=== PATIENT | female | born 1950 | race Caucasian/White ===

== ENCOUNTER 2023-11-11 23:50 | Inpatient (IN) | payer MEDICARE, BC, SELFPAY ==
[2023-11-11 21:10] VITALS: BP 167/80; BMI 28.1
[2023-11-11 21:18] VITALS: BP 167/80
[2023-11-11 21:41] VITALS: BP 141/84
[2023-11-11 21:42] LABS: % Basophils 0.6 % (0-2); % Eosinophils 1.2 % (0-6); % Immature Granulocytes 0.2 % (0-0.5); % Lymphocytes 29.8 % (20.5-51.1); % Monocytes 8.6 % (1.7-9.3); % Neutrophils 59.6 % (42.2-75.2); Absolute Basophils 0.1 10^3/uL (0-0.2); Absolute Eosinophils 0.1 10^3/uL (0-0.7); Absolute Lymphocytes 2.8 10^3/uL (1.2-3.4); Absolute Monocytes 0.8 10^3/uL (0.1-0.6); Absolute Neutrophils 5.6 10^3/uL (1.4-6.5); Hematocrit 42.4 % (37.0-47.0); Hemoglobin 14.7 g/dL (12.0-16.0); Mean Corp Hgb Conc. 34.7 g/dL (33.0-37.0); Mean Corpuscular Hgb 29.4 pg (27.0-31.0); Mean Corpuscular Volume 84.8 fL (81.0-99.0); Mean Platelet Volume 11.6 fL (7.4-10.4); Nucleated Red Blood Cells % 0 %; Platelet Count 218 10^3/uL (130-400); Red Cell Dist. Width 13.1 % (11.5-14.5); White Blood Cell Count 9.3 10^3/uL (4.8-10.8)
[2023-11-11 21:55] LABS: ALT (SGPT) 13 U/L (0-35); AST (SGOT) 33 U/L (14-36); Albumin 4.5 g/dl (3.5-5.0); Alkaline Phosphatase 128 U/L (38-126); Blood Urea Nitrogen 26 mg/dl (7-17); Calcium 9.1 mg/dl (8.4-10.2); Carbon Dioxide 24 mmol/L (22-30); Chloride 105 mmol/L (98-107); Estimated Creatinine Clearance 61 ml/min; Glucose 106 mg/dl (70-99); Sodium 135 mmol/L (135-145); Total Bilirubin 1.9 mg/dl (0.2-1.3); Total Protein 7.4 g/dl (6.3-8.2); eGFR > 60.00
[2023-11-11 22:00] VITALS: BP 142/86
--- NOTE | 2023-11-11 22:06 | ED.GENMED ---
History of Present Illness
General
Chief Complaint: Chest Pain
Source: patient and ambulance crew
Exam Limitations: none
Time Seen by Provider: 11/11/23 21:21
Nursing documentation reviewed up to this point in time: agreed with
Travel History
Have you had any contact with someone who has COVID-19?: No
Do you have any symptoms of coronavirus? Fever > 100 degrees, chills, cough, shortness of breath, sore throat, loss of taste or smell, muscle aches, or headache?: No
History of Present Illness
History of Present Illness:
Late entry seen immediately upon presentation 73-year-old female presents with chest jaw shoulder pain occurred after lifting some weights this evening, no prior episodes she has a history of hypertension, parathyroidism, eye surgeries
Patient tells me the pain improved after given aspirin by EMS,
My evaluation I reviewed patient's history EKG here EKG by EMS concern for ST segment elevation, immediately reviewed with cardiology, STEMI alert called
Review of Systems
Review of Systems
All Other Systems: Not applicable
EENT: Reports no symptoms
Respiratory: Reports trouble breathing
Cardiac: Reports chest pain; Denies diaphoresis or palpitations
ABD/GI: Reports no symptoms
Musculoskeletal: Reports muscle stiffness and neck pain
Phy Exam
Physical Exam
Physical Exam:
Physical Exam
General: no apparent distress, not acutely ill
Neck: No jaundice
Heart: s1/s2 regular rate and rhythm, no murmur. equal radial pulses.
Lungs: no acute respiratory distress. clear bilaterally
Abdomen: Not
Neuro: alert and oriented. no focal neurological deficits
Skin: no rash
Psychiatric: well kept. interactive and cooperative
Extremities: no edema.
Scores
Heart Score for Chest Pain Patients
STEMI patient?: Yes
Course
Orders/Labs/Results
Orders:
Orders
11/11/23 21:09
Electrocardiogram (*1) Urgent
Reason for Study: Chest Pain
EKG- Treatment ONCE
11/11/23 21:36
Complete Blood Count/With Diff Urgent
Comprehensive Metabolic Panel Urgent
Troponin I Urgent
Abnormal Lab Results
11/11/23
21:36
MPV 11.6 H fL
(7.4-10.4)
Absolute Monos (auto) 0.8 H 10^3/uL
(0.1-0.6)
BUN 26 H mg/dl
(7-17)
Glucose 106 H mg/dl
(70-99)
Total Bilirubin 1.9 H mg/dl
(0.2-1.3)
Alkaline Phosphatase 128 H U/L
(38-126)
Troponin I 0.343 H* ng/ml
11/11/23 21:36
11/11/23 21:36
Vital Signs
Initial and Last Documented VS:
Initial Vital Signs
Temp Pulse Resp BP Pulse Ox
97.7 F 85 18 167/80 99
11/11/23 21:10 11/11/23 21:10 11/11/23 21:10 11/11/23 21:10 11/11/23 21:10
Last Documented Vital Signs
Temp Pulse Resp BP Pulse Ox
97.7 F 78 18 141/84 97
11/11/23 21:10 11/11/23 22:00 11/11/23 22:00 11/11/23 21:41 11/11/23 22:00
MDM/Problems Addressed
Differential Diagnosis Includes:
STEMI late presentation [place] LV aneurysm pericarditis doubt PE
MDM/Problems Addressed:
Chest pain ST segment elevation
Chronic conditions affecting care: HTN
Acute Exacerbation and/or Progression of Chronic Illness: HTN
*Pulse Oximetry
Patient hypoxic: no
*EKG
Interpreted by ED Provider?: Yes
Interpretation: abnormal
Comparison EKG: no comparison EKG present
Heart Rate: 78
Rate: normal
Rhythm: sinus
Ischemia: ST elevation
*Coconut Jelly Roller Interpretation
Rate: normal
Interpretation: normal
Heart Rate: 78
Rhythm: sinus
*Critical Care Note
Total Time (30-74mins, 75-104mins- exclusive of procedures): 35
Update Note
Update Note:
Stationary is concerning for coronary syndrome prehospital EKG and EKG here concerning for ST segment elevation reviewed with cardiology STEMI alert called given usual meds sent to Control Room Technician multiple questions answered from patient
ED Attending Note
-
Portions of this chart may have been created with voice recognition software.� Occasional wrong word or��sound alike� substitutions may have occurred due to the inherent limitations of voice recognition software.
Discharge Plan
Departure
Patient Disposition: Admit
Date of Disposition: 11/11/23
Time of Disposition: 22:17
Admit to: laboratory apparatus glass grinder
Presentation/result/management discussed w/ accepting MD/DO: Lorie
Patient with high blood pressure during this ER visit?: Yes
Condition: Serious
Covid-19: Not Applicable
Discharge Problem:
ST elevation (STEMI) myocardial infarction
Interventions
Interventions:
*Risk Screen - Suicide Last Done: 11/11/23 21:10
*General Assessment Last Done: 11/11/23 21:10
*Neglect/Abuse Screening Last Done: 11/11/23 21:10
*ED COVID-19 Vaccine History Last Done: 11/11/23 21:43
[2023-11-11 22:07] LABS: Troponin I 0.343 ng/ml
[2023-11-11 22:20] LABS: ACT-LR - POC 218 Seconds (116-155)
[2023-11-11 22:34] LABS: ACT-LR - POC 282 Seconds (116-155)
[2023-11-11 22:45] LABS: ACT-LR - POC 329 Seconds (116-155)
[2023-11-11 23:03] LABS: ACT-LR - POC 306 Seconds (116-155)
[2023-11-11 23:36] LABS: ACT-LR - POC 326 Seconds (116-155)
[2023-11-12] VITALS (15 sets, daily range): BP systolic 114–160; BP diastolic 67–97; BMI 26.1
--- NOTE | 2023-11-12 00:04 | ITS.CL.CATH ---
Back Tender - Catheterization
Cardiac Catheterization
Procedure Report:
LEFT HEART CATH AND CORONARY INTERVENTION
Date of Procedure: November 11, 2023
Referring: [facility] Emergency Department
PROCEDURES:
1. Left heart catheterization with coronary and single-plane left ventriculography
2. Successful stenting of the proximal to mid LAD with a 3.5 x 38 mm Xience stent that was implanted at nominal pressures then postdilated to high pressures between 16 and 18 carisa with a 3.5 mm noncompliant balloon
INDICATION: This is a 73-year-old female with a past medical history notable for hypertension and partial parathyroidectomy. She presented to [facility] with complaints of chest and jaw discomfort. She states that she worked out at the
[facility] earlier today and noticed substernal chest tightness and jaw discomfort after returning home between 530 and 6:30 PM. The symptoms persisted and 911 was called. Her prehospital electrocardiogram was concerning for ST segment elevation in the
anteroseptal leads V1 and V2. Upon arrival to [facility] the patient was very reluctant to report chest discomfort or jaw discomfort which led to her admission. A repeat electrocardiogram continued to demonstrate ST elevation in lead V1
and V2 as well as possibly in lead V4 and the decision was made to refer the patient for coronary angiography. Note: patient was very conversant in the ED and was difficult to get her to stay on topic of her chest pain. We also reviewed the
procedure and details of the consent with the patients son, Brian, who lives in [place]. She was chest pain free and moved slowly toward consenting for procedure delaying ED time by 5-10 minutes.
ACCESS: Right radial artery, 6 Ghanaian sheath
HEMODYNAMICS (mmHg):
AO (s/d, m) : 148/81
LV (s/d) : 148/14
LVEDP : 27
CORONARY FINDINGS: Moderate left coronary system calcification
Dominance: Right
LEFT MAIN: Normal
LEFT ANTERIOR DESCENDING: The LAD was moderately calcified in its proximal and mid section. There is a 95% stenosis in the proximal LAD involving the origin of a small first diagonal branch. The mid to distal LAD becomes a large-caliber vessel and
the apical LAD has a 65% stenosis but completely wraps around the apex supplying a portion of the inferior wall. There is a small caliber first diagonal branch that arises just beyond the high-grade stenosis in the LAD. The diagonal branch has a
95% proximal stenosis and supplies a small to medium territory.
CIRCUMFLEX: The circumflex gives rise to a large trifurcating obtuse marginal branch. The AV continuation of the circumflex supplies 2 small posterolateral branches.
RIGHT CORONARY: The right coronary artery is a dominant vessel with a 20% stenosis in its midportion near the origin of an RV marginal branch. There are parallel PDAs and a very small posterolateral system
VENTRICULOGRAPHY: Left ventriculography was performed in an RECINOS projection. The digital single-plane left ventricular ejection fraction was estimated at 50% with mild anterolateral hypokinesis and focal apical hypokinesis
ANGIOPLASTY PROCEDURE DETAIL: Upon review of the diagnostic catheterization films the decision was made to proceed with percutaneous revascularization of the high-grade proximal LAD stenosis. Cannulation of the left main was not difficult, however,
I could not get a guidewire to pass to the LAD. The left main was initially cannulated with a 6 Ghanaian XB 3.5 guide catheter at 10:23 p.m. I could not get a BMW guidewire to cross to the ostium of the LAD without prolapsing into the circumflex. I
tried the BMW guidewire with multiple different bends at the tip of the wire, however, the wire was favorably directed to the circumflex. The XB 3.5 guide catheter was removed and exchanged for an XB 3.0 guide catheter, a JL 4 guide catheter, and a
JL 3.5 guide catheter. Each catheter could cannulate the left main, however, the wires were directed towards the circumflex and could not engage the LAD ostium. Fortunately, a 6 Ghanaian AL 0.75 guiding catheter favorably directed the guidewire and
the LAD stenosis was crossed with a Powerturn Flex wire which was advanced to the apical LAD. I had initially planned on ballooning and/or stenting the origin of the diagonal branch, however, the acute angle from the proximal LAD prevented
cannulation of the diagonal branch with several guidewire attempts. At this time the decision was made to proceed with balloon angioplasty and stenting of the LAD. The first balloon dilation was performed at 11: 18 p.m. representing approximate 50
minute delay in door to balloon time. Fortunately, the LAD had ZANE 3 flow throughout the procedure and clinically she was experiencing no chest discomfort.
The Powerturn Flex was advanced to the apical LAD and the proximal LAD was predilated using a 2.0 mm balloon. High pressures were required to achieve full balloon expansion. A 3.5 x 38 mm Xience stent was advanced over the guide wire and implanted
from the ostium of the LAD to the mid LAD beyond the diagonal branch. The stent was implanted at nominal pressures then post dilated with a 3.5 mm NC balloon between 16 and 18 atmospheres. I did attempt to rewire the diagonal branch unsuccessful.
Fortunately, the flow into the diagonal branch remained stable post stent deployment and post dilation
RADIATION SUMMARY: Fluoro Time (min): 32, Dose (mGy): 737, DAP (Gy.cm2) : 32.4
CONCLUSIONS
1. Complex but ultimately successful stenting of the proximal to mid LAD with a 3.5 x 38 mm Xience stent that was implanted at nominal pressures and postdilated with a 3.5 mm noncompliant balloon to high pressures.
2. Preserved left ventricular systolic function with an estimated ejection fraction of 50-55% mild anterolateral hypokinesis
RECOMMENDATIONS
1. Uninterrupted dual antiplatelet therapy for 1 year
2. High intensity statin therapy
3. Trend serial troponin levels and will check fasting lipids and hemoglobin A1c
4. Will need to work on better blood pressure control
Copy To: Dr. Chase Melo
[2023-11-12 03:30] LABS: % Basophils 0.4 % (0-2); % Eosinophils 1.3 % (0-6); % Immature Granulocytes 0.2 % (0-0.5); % Lymphocytes 27.7 % (20.5-51.1); % Monocytes 9.2 % (1.7-9.3); % Neutrophils 61.2 % (42.2-75.2); Absolute Eosinophils 0.1 10^3/uL (0-0.7); Absolute Lymphocytes 2.3 10^3/uL (1.2-3.4); Absolute Monocytes 0.8 10^3/uL (0.1-0.6); Absolute Neutrophils 5.2 10^3/uL (1.4-6.5); Hematocrit 38.4 % (37.0-47.0); Hemoglobin 13.4 g/dL (12.0-16.0); Mean Corp Hgb Conc. 34.9 g/dL (33.0-37.0); Mean Corpuscular Hgb 29.2 pg (27.0-31.0); Mean Corpuscular Volume 83.7 fL (81.0-99.0); Mean Platelet Volume 11.7 fL (7.4-10.4); Nucleated Red Blood Cells % 0 %; Platelet Count 195 10^3/uL (130-400); Red Blood Cell Count 4.59 10^6/uL (4.20-5.40); White Blood Cell Count 8.4 10^3/uL (4.8-10.8)
[2023-11-12 03:58] LABS: Blood Urea Nitrogen 25 mg/dl (7-17); Calcium 8.8 mg/dl (8.4-10.2); Carbon Dioxide 21 mmol/L (22-30); Chloride 110 mmol/L (98-107); Estimated Creatinine Clearance 78 ml/min; Glucose 97 mg/dl (70-99); HDL Cholesterol 76 mg/dl; LDL Cholesterol, Calculated 105 mg/dl; Potassium 3.7 mmol/L (3.5-5.1); Sodium 137 mmol/L (135-145); Total Cholesterol 192 mg/dl (50-199); Triglyceride 56 mg/dl (10-149); Very Low Density Lipoprotein 11 mg/dl (0-30); eGFR > 60.00
[2023-11-12 04:08] LABS: Troponin I 0.871 ng/ml
--- NOTE | 2023-11-12 05:16 | PTCARENOTE ---
pt received from veterinary laboratory technician approximately 2350. R radial band in place. R radial pulse palpable. B/l pedal pulses palpable. Pt extremely conversive. Pt oriented to IVU and [facility]. Pt belongings with pt. Pt educated on what is a STEMI,
what counts as a heart attack, CAD, and diet choices. Pt updated son on phone on condition. Pt denies any CP, lightheadedness/dizziness, or SOB at this time. Informed to notify RN if any changes, call barros within reach.
--- NOTE | 2023-11-12 08:35 | PTCARENOTE ---
Rec'd pt AAOx3, w/no c/o CP or SOB. Pt mildly anxious & very talkative this am. Pt's R radial band removed by this RN & sterile dressing placed. Site is ecchymotic w/dressing C/D/I, no signs or symptoms of bleeding or hematoma. Pt's VS stable w/HR
80's, BP slightly elevated at 151/97. Plan of care discussed w/pt & pt verbalizes understanding. Plan of care ongoing.
[2023-11-12 09:27] LABS: Glycohemoglobin (HgbA1c) 5.8 % (4.0-5.6)
[2023-11-12] MEDS: BRILINTA 90 MG PO (10:07)
[2023-11-12] MEDS: COZAAR 100 MG PO (10:07)
[2023-11-12] MEDS: LOW STRENGTH ASPIRIN 81 MG PO (10:07)
--- NOTE | 2023-11-12 11:01 | PTCARENOTE ---
Pt questioning her new medications and would like to speak w/the MD re: the metoprolol XL and Brilinta. Pt willing to take Brilinta at this time, but needs to speak w/CM re: pricing for the med. Pt unwilling to take metoprolol XL until she sees
physician. Also pt stated she takes her Norvasc in the evening. Advised pt this RN would speak w/ re: changing the time for the Norvasc and them coming to speak w/her about the other new meds. Pt agreeable to plan of care.
--- NOTE | 2023-11-12 13:17 | CM ---
Reviewed chart . Met with Miss Tavarez to review discharge plans. She states prior to admission she resides alone in an apartment with twelve steps to enter. She states prior to admission she was independent with ambulation and adls. She states
she does not have any DME in the home. She does have a blood pressure cuff. She states she has a prescription plan with [facility]. Telephone call to Amy, ([phone]) to check on co-pay. Her first script would be $ 361.19 for a month
supply. 90 day supply first script would be $805.96. After she meets her deductible she would pay $50% of the cost of the medication. So it would be $221.98 a month or $665.96 for a 90 day supply. She would like to have paper scripts so she can
shop around for the best olivares for her medications. She states they doctor is planning on switching her to Plavix in A.M. She has numerous questions regarding new medications and cardiac rehab. Medical work-up in progress. The discharge plan is
to return home when medically stable.
--- NOTE | 2023-11-12 13:56 | W.PN.CARDCBS ---
Addendum entered and electronically signed by Mil Moran MD 11/12/23 15:38:
I saw and examined the patient.
The SHAREPOINT ARCHITECT or PA's note was reviewed and I agree with the note.
Comment: General: Well developed, well nourished in NAD.
Neck: Supple, no JVD, HJR, carotids +2 B/L, no bruits bilaterally.
Heart: Non displaced PMI, RRR, no murmurs, No S3, S4, no rubs.
Lungs: Clear to auscultation bilaterally, no wheeze, rhonchi, rubs bilaterally,
normal expiratory phase.
Extremities: No clubbing, cyanosis or edema bilaterally.
Neuro: Grossly nonfocal, awake, alert and oriented x3.
Stable cardiology status. Ejection fraction normal on echo. Will stop Brilinta and start Plavix given Brilinta is too costly. She agrees to low-dose Toprol. All medications and questions have been answered in detail by physician and PA. Total
time was 60 minutes.
Original Note:
Today's Communication / Plan
-
Stop Brilinta now and then start Plavix 600 mg in AM then 75 mg daily thereafter
Patient willing to try low dose Toprol XL in AM
All meds reviewed with patient and approved
Impression / Plan
-
PCP: in [place]
Cardiology: None prior to admission
Impression:
STEMI, Troponin 1.73 and trending
CAD s/p 3.5 mm Xience to prox to mid LAD 11/11/23
HTN with labile HTN
Prediabetes, HgbA1c 5.8%
Hyperlipidemia
Echo 11/12/23: EF 50-55%, mild septal hypertrophy, mid anteroseptal and distal septal hypokinesis, aortic sclerosis without stenosis
Plan:
-Tolerating aspirin and Brilinta, but Brilinta is cost prohibitive. Will stop Brilinta now and then start Plavix with a loading dose of 600 mg on 11/13/23 AM followed by 75 mg daily thereafter.
-Troponin was 0.3 initially and up to 1.73 at 1030 on 11/12/23. Next Troponin pending for 1500. No chest pain. ECG reviewed by me with improved ST changes.
-ECGs, labs and cath report shared with patient and she appreciated it.
-LDL 105. Patient was not taking a statin prior to admission. Patient is agreeable to trying Crestor 20 mg HS.
-Patient with a h/o HTN. Her PCP is a former knifer up and he has done an excellent job configuring her meds given her h/o labile BPs as well. Will continue outpatient regimen of losartan 100 mg AM and amlodipine 2.5 mg PM. Patient is willing to
try Toprol XL 12.5 mg starting 11/13/23 AM. Patient reports syncope with bradycardia (HR 50s) on atenolol 6-8 years ago while still living in [place].
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
-Tele reviewed by me shows SR, no ventricular ectopy or arrhythmia
-Reviewed hospital course thus far and meds with patient. On 11/12/23 entered room at 1427 and exited room at 1456. Additional time spent talking with patient's nurse, cardiac rehab and case resolution specialist for a total of 53 minutes in care on 11/12/23.
HPI: This is a 73-year-old female with a past medical history notable for hypertension and partial parathyroidectomy.� She presented to [facility] with complaints of chest and jaw discomfort.� She states that she worked out at the [facility]
earlier today and noticed substernal chest tightness and jaw discomfort after returning home between 530 and 6:30 PM.� The symptoms persisted and 911 was called.� Her prehospital electrocardiogram was concerning for ST segment elevation in the
anteroseptal leads V1 and V2.� Upon arrival to [facility] the patient was very reluctant to report chest discomfort or jaw discomfort which led to her admission.� A repeat electrocardiogram continued to demonstrate ST elevation in lead V1
and V2 as well as possibly in lead V4 and the decision was made to refer the patient for coronary angiography.� Note: patient was very conversant in the ED and was difficult to get her to stay on topic of her chest pain.� We also reviewed the
procedure and details of the consent with the patients son, Brian, who lives in [place].� She was chest pain free and moved slowly toward consenting for procedure delaying ED time by 5-10 minutes.
Progress Note - Exhibition Specialist
Subjective
Date of Service: November 12, 2023
No chest pain
Objective
Labs:
11/12/23 02:42
11/12/23 02:42
Labs
Hgb 13.4 g/dL (12.0-16.0) 11/12/23 02:42
Hct 38.4 % (37.0-47.0) 11/12/23 02:42
Plt Count 195 10^3/uL (130-400) 11/12/23 02:42
Sodium 137 mmol/L (135-145) 11/12/23 02:42
Potassium 3.7 mmol/L (3.5-5.1) 11/12/23 02:42
BUN 25 mg/dl (7-17) H 11/12/23 02:42
Creatinine 0.7 mg/dL (0.6-1.0) 11/12/23 02:42
Glucose 97 mg/dl (70-99) 11/12/23 02:42
Troponins
11/11/23 11/11/23 11/12/23
21:36 21:39 02:42
Troponin I 0.343 H* Cancelled 0.871 H* D
11/12/23
10:30
Troponin I 1.730 H* D
Vital Signs and I&O:
Vital Signs
Temp Pulse Resp BP Pulse Ox
97.7 F 74 20 131/69 97
11/12/23 11:34 11/12/23 12:45 11/12/23 11:34 11/12/23 11:37 11/12/23 11:34
Vital Signs
Temp Pulse Resp BP Pulse Ox
97.7 F 74 20 131/69 97
11/12/23 11:34 11/12/23 12:45 11/12/23 11:34 11/12/23 11:37 11/12/23 11:34
Intake & Output
11/10/23 11/11/23 11/12/23 11/13/23
05:59 06:59 06:59 06:59
Intake Total 120 / 120
Balance 120 / 120
Physical Exam
Physical Exam
GEN: NAD, AAOx3
HEENT: EOMI, MMM
LUNGS: No audible wheeze
CV: Reg
ABD: ND
EXT: No edema
NEURO: Gross non-focal
SKIN: No rash
--- NOTE | 2023-11-12 17:16 | W.PN.UPDATE ---
Update Note
Progress Note Update
Back in to talk to patient and let her known that Brilinta will transition to Plavix with a 600 mg loading dose in the AM. Meds for tonight include Crestor and amlodipine. Meds for tomorrow morning include Toprol XL (for the first time), Plavix,
aspirin and her usual dose of losartan.
[2023-11-12] MEDS: CRESTOR 20 MG PO (17:49)
[2023-11-12] MEDS: NORVASC 2.5 MG PO (20:21)
--- NOTE | 2023-11-12 23:26 | PTCARENOTE ---
Pt requested a list of her current medication orders- screenshots provided of the MAR for meds and dosage. Trops still trending up. SR in the 70s on the monitor.
[2023-11-13 04:55] VITALS: BP 129/71
[2023-11-13 07:35] VITALS: BP 137/90
[2023-11-13] MEDS: COZAAR 100 MG PO (09:13)
[2023-11-13] MEDS: LOW STRENGTH ASPIRIN 81 MG PO (09:13)
[2023-11-13] MEDS: PLAVIX 600 MG PO (09:13)
[2023-11-13] MEDS: TOPROL XL 12.5 MG PO (09:13)
--- NOTE | 2023-11-13 10:56 | PTCARENOTE ---
Pt AAOx3 w/no c/o CP or SOB. Pt w/R radial dressing C/D/I-dressing removed & site is intact & JACQUE. Pt's VS stable w/HR in the 60's & BP 137/90, which pt states 'is her norm'. Pt anticipating D/C today. Plan of care ongoing.
--- NOTE | 2023-11-13 11:59 | W.PN.CARDCBS ---
Addendum entered and electronically signed by Mil Moran MD 11/13/23 14:42:
I saw and examined the patient.
The ANDROID SOFTWARE ENGINEER or PA's note was reviewed and I agree with the note.
Comment: General: Well developed, well nourished in NAD.
Stable cardiology status for discharge to home
Troponin decreased
Follow-up has been arranged
All questions answered
Discharge time greater than 30-minutes
Original Note:
Today's Communication / Plan
-
Troponin pending
Possible d/c
Impression / Plan
-
PCP: in [place]
Cardiology: None prior to admission
Impression:
STEMI, Troponin 1.73 and trending
CAD s/p 3.5 mm Xience to prox to mid LAD 11/11/23
HTN with labile HTN
Prediabetes, HgbA1c 5.8%
Hyperlipidemia
Echo 11/12/23: EF 50-55%, mild septal hypertrophy, mid anteroseptal and distal septal hypokinesis, aortic sclerosis without stenosis
Plan:
-Brilinta was cost prohibitive so patient transitioned to Plavix with a loading dose of 600 mg x1 on 11/13/23 AM. Then start Plavix 75 mg daily thereafter.
-Troponin up to 2.96 on 11/13/23 AM and next Troponin pending. If trending down then patient can be discharged to home.
-ECG reviewed by me with improved ST changes.
-ECGs, labs and cath report shared with patient and she appreciated it.
-LDL 105. Patient was not taking a statin prior to admission. Patient agreeable to trying Crestor 20 mg HS.
-Patient with a h/o HTN. 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
-Continue outpatient regimen of losartan 100 mg AM and amlodipine 2.5 mg PM.
-Patient is willing to try Toprol XL 12.5 mg starting 11/13/23 AM. 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
-Tele reviewed by me shows SR, no ventricular ectopy or arrhythmia
-Cardiology follow up arranged
HPI: This is a 73-year-old female with a past medical history notable for hypertension and partial parathyroidectomy.� She presented to [facility] with complaints of chest and jaw discomfort.� She states that she worked out at the [facility]
earlier today and noticed substernal chest tightness and jaw discomfort after returning home between 530 and 6:30 PM.� The symptoms persisted and 911 was called.� Her prehospital electrocardiogram was concerning for ST segment elevation in the
anteroseptal leads V1 and V2.� Upon arrival to [facility] the patient was very reluctant to report chest discomfort or jaw discomfort which led to her admission.� A repeat electrocardiogram continued to demonstrate ST elevation in lead V1
and V2 as well as possibly in lead V4 and the decision was made to refer the patient for coronary angiography.� Note: patient was very conversant in the ED and was difficult to get her to stay on topic of her chest pain.� We also reviewed the
procedure and details of the consent with the patients son, Brian, who lives in [place].� She was chest pain free and moved slowly toward consenting for procedure delaying ED time by 5-10 minutes.
Progress Note - Superintendent Operating
Subjective
Date of Service: November 13, 2023
No chest pain
Objective
Labs:
11/12/23 02:42
11/12/23 02:42
Labs
Hgb 13.4 g/dL (12.0-16.0) 11/12/23 02:42
Hct 38.4 % (37.0-47.0) 11/12/23 02:42
Plt Count 195 10^3/uL (130-400) 11/12/23 02:42
Sodium 137 mmol/L (135-145) 11/12/23 02:42
Potassium 3.7 mmol/L (3.5-5.1) 11/12/23 02:42
BUN 25 mg/dl (7-17) H 11/12/23 02:42
Creatinine 0.7 mg/dL (0.6-1.0) 11/12/23 02:42
Glucose 97 mg/dl (70-99) 11/12/23 02:42
Troponins
11/11/23 11/11/23 11/12/23
21:36 21:39 02:42
Troponin I 0.343 H* Cancelled 0.871 H* D
11/12/23 11/12/23 11/12/23
10:30 16:15 21:53
Troponin I 1.730 H* D 2.210 H* D 2.660 H*
11/13/23
05:02
Troponin I 2.960 H*
Vital Signs and I&O:
Vital Signs
Temp Pulse Resp BP Pulse Ox
98.1 F 71 16 137/90 95
11/13/23 07:33 11/13/23 08:00 11/13/23 07:33 11/13/23 07:35 11/13/23 07:33
Vital Signs
Temp Pulse Resp BP Pulse Ox
98.1 F 71 16 137/90 95
11/13/23 07:33 11/13/23 08:00 11/13/23 07:33 11/13/23 07:35 11/13/23 07:33
Intake & Output
11/11/23 11/12/23 11/13/23 11/14/23
06:59 06:59 06:59 06:59
Intake Total 120 / 120 960 / 960
Balance 120 / 120 960 / 960
Physical Exam
Physical Exam
GEN: NAD, AAOx3
HEENT: EOMI, MMM
LUNGS: No audible wheeze
CV: Reg
ABD: ND
EXT: No edema
NEURO: Gross non-focal
SKIN: No rash
[2023-11-13 12:14] VITALS: BP 120/74
--- NOTE | 2023-11-13 12:25 | W.DS.TRANS ---
DC Summary - [employer]
-
Discharge Instructions:
Discharge Diagnosis/Procedures ST elevation myocardial infarction, coronary
stent to the left anterior descending artery (
LAD), hypertension, hyperlipidemia, elevated
hemoglobin A1c of 5.8%
Diet Low Fat
Activity Other activity
Additional Activity See attached sheet
Driving Restrictions As prior to admission
Bathing Restrictions OK to Shower
Other Services Cardiac Rehab
Instructions:
Stand-Alone Forms:
Changes to Home Medications: Yes
Discharge Medications:
DC Medications w/original date entered in [employer]
amlodipine 2.5 mg tablet 2.5 mg PO HS Blood Pressure 11/12/23
ergocalciferol (vitamin D2) 1,000 unit capsule 2,000 unit PO DAILY Supplement 11/12/23
losartan 100 mg tablet 100 mg PO DAILY Blood Pressure 11/12/23
vit C 250 mg-vit E 90 mg-zinc 40 mg-copper 1 kv-cuzjfo-jvvezh capsule (PreserVision AREDS-2) 1 tab PO BID Supplement 11/12/23
aspirin 81 mg chewable tablet (Children's Aspirin) 81 mg PO DAILY Heart disease/condition #30 tabs 11/13/23
clopidogrel 75 mg tablet 75 mg PO DAILY Heart disease/condition #30 tabs 11/13/23
metoprolol succinate 25 mg tablet,extended release 24 hr 12.5 mg PO DAILY Heart disease/condition #30 tabs 11/13/23
rosuvastatin 20 mg tablet 20 mg PO QPM High cholesterol 30 days #30 tabs 11/13/23
Home Medication Changes
New to Crestor, Toprol XL, aspirin and Plavix
Pending Results: No
--- NOTE | 2023-11-13 13:22 | W.PN.UPDATE ---
Update Note
Progress Note Update
Patient previously asked for paper prescriptions, but now asking for Crestor, Toprol XL and Plavix to be e-scribed to [facility], completed. Patient also provided paper copy of echo. Patient is asking for cath films and echo to be placed on a
disc that she can share with her son, called and asked cath team and they are burning discs now.
[2023-11-13 15:09] VITALS: BP 133/74
--- NOTE | 2023-11-13 16:27 | PTCARENOTE ---
Pt discharged to home w/[employer] ride providing transportation. 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 After pt left, pt's discharge folder w/disks from the medical lab scientist & D/C instructions was found on the counter at the
nurses station. automotive parts clerk left vmail msg for pt.
== END 2023-11-13 16:06 | disposition home or self-care (01) | DRG 322 ==
LOC: IVU 23:50
PROVIDERS: ADMITTING PHYSICIAN Internal Medicine Interventional Cardiology; EMERGENCY PHYSICIAN Emergency Medicine
PROC: 4A023N7 Measurement of Cardiac Sampling and Pressure, Left Heart, Percutaneous Approach (ICD-10-PCS; 2023-11-12)
PROC: B2111ZZ Fluoroscopy of Multiple Coronary Arteries using Low Osmolar Contrast (ICD-10-PCS; 2023-11-12)
PROC: 02703DZ Dilation of Coronary Artery, One Artery with Intraluminal Device, Percutaneous Approach (ICD-10-PCS; 2023-11-12)
PROC: B2151ZZ Fluoroscopy of Left Heart using Low Osmolar Contrast (ICD-10-PCS; 2023-11-12)
DX: I21.3 ST elevation (STEMI) myocardial infarction of unspecified site (principal); I10 Essential (primary) hypertension; I70.0 Atherosclerosis of aorta
CPT/HCPCS: 80048; 80053; 80061; 83036; 84484; 85025; 85347; 93005; 93306; 93458; 99291; C1725; C1769; C1874; C1887; C1894; C9606; Q9967

== ENCOUNTER 2023-12-31 13:38 | Outpatient (RCR) | payer MEDICARE, BC, SELFPAY | END 2023-12-31 23:59 | disposition home or self-care (01) | LOC: CRHB 13:38 | PROVIDERS: ATTENDING PHYSICIAN Internal Medicine Interventional Cardiology | DX: I21.01 ST elevation (STEMI) myocardial infarction involving left main coronary artery (principal); Z95.5 Presence of coronary angioplasty implant and graft | CPT/HCPCS: G0422; G0423 ==

== ENCOUNTER 2024-01-29 08:52 | Outpatient (RCR) | payer MEDICARE, BC, SELFPAY | END 2024-01-29 23:59 | disposition home or self-care (01) | LOC: CRHB 08:52 | PROVIDERS: ATTENDING PHYSICIAN Internal Medicine Interventional Cardiology | DX: I21.01 ST elevation (STEMI) myocardial infarction involving left main coronary artery (principal); Z95.5 Presence of coronary angioplasty implant and graft | CPT/HCPCS: G0422; G0423 ==

== ENCOUNTER 2024-05-28 06:17 | Emergency (ER) | payer MEDICARE, BC, SELFPAY ==
[2024-05-28 06:17] VITALS: BMI 24.6
[2024-05-28 06:21] VITALS: BP 203/103
[2024-05-28 06:48] VITALS: BP 186/87
[2024-05-28 07:00] VITALS: BP 151/99
[2024-05-28 08:00] VITALS: BP 164/79
[2024-05-28 08:17] LABS: % Basophils 0.9 % (0-2); % Eosinophils 1.9 % (0-6); % Immature Granulocytes 0.2 % (0-0.5); % Lymphocytes 32.9 % (20.5-51.1); % Monocytes 10.3 % (1.7-9.3); % Neutrophils 53.8 % (42.2-75.2); Absolute Eosinophils 0.1 10^3/uL (0-0.7); Absolute Lymphocytes 1.5 10^3/uL (1.2-3.4); Absolute Monocytes 0.5 10^3/uL (0.1-0.6); Absolute Neutrophils 2.5 10^3/uL (1.4-6.5); Hematocrit 39.2 % (37.0-47.0); Hemoglobin 13.2 g/dL (12.0-16.0); Mean Corp Hgb Conc. 33.7 g/dL (33.0-37.0); Mean Corpuscular Hgb 29.4 pg (27.0-31.0); Mean Corpuscular Volume 87.3 fL (81.0-99.0); Mean Platelet Volume 10.8 fL (7.4-10.4); Nucleated Red Blood Cells % 0 %; Platelet Count 190 10^3/uL (130-400); Red Blood Cell Count 4.49 10^6/uL (4.20-5.40); Red Cell Dist. Width 13.1 % (11.5-14.5); White Blood Cell Count 4.7 10^3/uL (4.8-10.8)
[2024-05-28 08:23] LABS: ALT (SGPT) 18 U/L (0-35); AST (SGOT) 42 U/L (14-36); Albumin 4.2 g/dl (3.5-5.0); Alkaline Phosphatase 106 U/L (38-126); Blood Urea Nitrogen 11 mg/dl (7-17); Calcium 8.8 mg/dl (8.4-10.2); Carbon Dioxide 22 mmol/L (22-30); Chloride 102 mmol/L (98-107); Creatine Phosphokinase 101 U/L (30-135); Estimated Creatinine Clearance 68 ml/min; Glucose 101 mg/dl (70-99); Potassium 3.9 mmol/L (3.5-5.1); Sodium 137 mmol/L (135-145); Total Bilirubin 2.3 mg/dl (0.2-1.3); Total Protein 6.5 g/dl (6.3-8.2); eGFR > 60.00
--- NOTE | 2024-05-28 08:51 | ED.GENMED ---
History of Present Illness
General
Chief Complaint: Musculo-Skeletal Complaint
Source: patient
Exam Limitations: none
Time Seen by Provider: 05/28/24 08:03
Nursing documentation reviewed up to this point in time: agreed with
History of Present Illness
History of Present Illness:
74-year-old female presenting to the emergency department today with concerns of cramping in bilateral calves while sleeping last night. She was concerned she could be in rhabdomyolysis considering she was started on a about 6 months ago when she
had stents placed. She also was started on Plavix at the time. Denies any specific chest pain shortness of breath at this point feels well.
Review of Systems
Review of Systems
Allergies reviewed?: Yes
All Other Systems: ROS reviewed and negative except as documented in HPI and ROS
Phy Exam
Physical Exam
Physical Exam:
GENERAL: Alert , in no apparent distress
EYE: pupils equal and reactive
NECK: Supple, no significant adenopathy.
ENT: o/p clr, mmm.
CARDIAC: Regular rate and rhythm .
LUNGS: Clear breath sounds bilaterally, no acute respiratory distress, no wheezes/rales/rhonchi
ABDOMEN: Soft, without focal tenderness, no r/g, no cvat
NEUROLOGICAL: Alert and oriented, no focal neuro deficits
SKIN: Warm and dry, skin intact.
MUSCULOSKELETAL: No edema, well perfused.
PSYCH: Normal and appropriate interaction.
Course
Orders/Labs/Results
Orders:
Orders
05/28/24 07:59
CMP [Comprehensive Metabolic Panel] Urgent
CPK [Creatine Phosphokinase] Urgent
Complete Blood Count/With Diff Urgent
05/28/24 09:30
Urinalysis Reflex To Culture Urgent
Date Specimen was Collected: 05/28/24
Time Specimen was Collected: 09:29
Abnormal Lab Results
05/28/24
07:59
WBC 4.7 L 10^3/uL
(4.8-10.8)
MPV 10.8 H fL
(7.4-10.4)
Monocytes % 10.3 H %
(1.7-9.3)
Glucose 101 H mg/dl
(70-99)
Total Bilirubin 2.3 H mg/dl
(0.2-1.3)
AST 42 H U/L
(14-36)
05/28/24 07:59
05/28/24 07:59
Vital Signs
Initial and Last Documented VS:
Initial Vital Signs
Temp Pulse Resp BP Pulse Ox
99.0 F 68 19 203/103 100
05/28/24 06:21 05/28/24 06:21 05/28/24 06:21 05/28/24 06:21 05/28/24 06:21
Last Documented Vital Signs
Temp Pulse Resp BP Pulse Ox
99.0 F 52 16 168/85 98
05/28/24 06:21 05/28/24 09:00 05/28/24 09:00 05/28/24 09:00 05/28/24 09:00
MDM/Problems Addressed
MDM/Problems Addressed:
74-year-old female presenting to the emergency department today with concerns of leg cramping last night. Patient is on a statin and was concerned that she could have rhabdomyolysis. Upon arrival blood pressure was significantly elevated but
improving without specific treatment. Other vital signs are normal. Patient able to make urine here labs did not show any evidence of rhabdomyolysis normal renal function normal creatinine kinase urinalysis without acute abnormalities. No signs
of complication stable for outpatient management. Elevated blood pressure was discussed with the patient who will keep an eye on this as an outpatient.
*Critical Care Note
Total Time (30-74mins, 75-104mins- exclusive of procedures): Not Applicable
ED Attending Note
-
Portions of this chart may have been created with voice recognition software.� Occasional wrong word or��sound alike� substitutions may have occurred due to the inherent limitations of voice recognition software.
Discharge Plan
Departure
Patient Disposition: Home (Routine Discharge)
Date of Disposition: 05/28/24
Time of Disposition: 10:51
Patient with high blood pressure during this ER visit?: Yes
Condition: Good
Covid-19: Not Applicable
Discharge Problem:
Cramp in muscle
Instructions: Muscle Spasm ED, BLOOD PRESSURE
Prescriptions:
No Action
amlodipine 2.5 mg Tablet
2.5 mg PO HS
losartan 100 mg Tablet
100 mg PO DAILY
ergocalciferol (vitamin D2) 1,000 unit Capsule
2,000 unit PO DAILY
PreserVision AREDS-2 250-90-40-1 mg Capsule
1 tab PO BID
aspirin [Children's Aspirin] 81 mg Tablet,Chewable
81 mg PO DAILY Qty: 30 0RF
metoprolol succinate 25 mg Tablet Extended Release 24 Hr
12.5 mg PO DAILY Qty: 30 11RF
clopidogrel [Plavix] 75 mg tablet
75 mg PO DAILY Qty: 90 3RF
rosuvastatin [Crestor] 20 mg tablet
20 mg PO DAILY Qty: 90 3RF
Referrals:
PRIVATE,PHYSICIAN [Family Provider] -
Activity Restrictions/Additional Instructions:
You came to the emergency department today after having muscle cramping. Here there is no evidence of rhabdomyolysis or significant complications. Please follow closely with your primary care doctor. Your blood pressure was elevated here please
keep an eye on this as an additionally the very slightly elevated AST and bilirubin which should be repeated as an outpatient by the primary care doctor in the next 1 to 2 weeks as an outpatient. Return to the emergency department for any
worsening, new or concerning symptoms
Interventions
Interventions:
*Risk Screen - Suicide Last Done: 05/28/24 06:21
*General Assessment Last Done: 05/28/24 06:21
*Neglect/Abuse Screening Last Done: 05/28/24 06:21
ED- Fall Risk Assessment Last Done: 05/28/24 07:27
*ED COVID-19 Vaccine History Last Done: 05/28/24 06:21
ED-Musculoskeletal Assessment Last Done: 05/28/24 06:50
Discharge Date and Time
Print Language: IRAQI
[2024-05-28 09:00] VITALS: BP 168/85
[2024-05-28 09:46] LABS: Urine Albumin Negative (Neg - Trace); Urine Bilirubin Negative (Negative); Urine Character Clear (Clear); Urine Color Yellow; Urine Glucose Negative (Negative); Urine Ketone Negative (Negative); Urine Leukocyte Negative (Negative); Urine Nitrite Negative (Negative); Urine Occult Blood Negative (Negative); Urine Urobilinogen Negative (Neg - 1+)
--- NOTE | 2024-05-28 11:15 | EDRN ---
Reviewed discharge instructions with patient. Verbalized understanding. Ambulated with steady gait margarito the lobby.
[2024-05-28 11:26] VITALS: BP 166/79
== END 2024-05-28 11:15 | disposition home or self-care (01) ==
LOC: EMR 06:17
PROVIDERS: Emergency Medicine; Physician Assistant; EMERGENCY PHYSICIAN Emergency Medicine
DX: R25.2 Cramp and spasm (principal); I10 Essential (primary) hypertension; Z79.02 Long term (current) use of antithrombotics/antiplatelets; Z91.041 Radiographic dye allergy status; Z79.82 Long term (current) use of aspirin
CPT/HCPCS: 99283; 80053; 81003; 82550; 85025

== ENCOUNTER 2024-11-27 10:12 | Emergency (ER) | payer MEDICARE, BC, SELFPAY ==
[2024-11-27 10:13] VITALS: BP 207/102
--- NOTE | 2024-11-27 11:23 | ED.GENMED ---
History of Present Illness
<Anastasia Rowley PA-C - Last Filed: 11/28/24 14:19>
General
Chief Complaint: Musculo-Skeletal Complaint
Source: patient
Exam Limitations: none
Time Seen by Provider: 11/27/24 10:58
Nursing documentation reviewed up to this point in time: agreed with
History of Present Illness
History of Present Illness:
pt is a 74 y/o F
with h/o htn, NC with stent
no asa/plavix due to bruising
here with about 2 weeks of noticeable R knee pain and R thigh tightness/pain, ka[place] with flexion/stretching at the gym; she had no injury but noticed she was having some pain with certain stretches
walks long distances regularly
yesterday she started having more significant pain in her R knee and then during a short walk felt pop in the back of her calf proximally and had to limp the rest of the way
she has since had painful limited weight bearing and feels more swelling in the knee, limiting her ability to flex all the way
she also feels some pain in her thigh
it is worse with movement of the nkee/flexion; she is not describing claudication symptoms where she has no pain at rest but worse with exertion; this is with active ROM of her knee and weight bearing/standing
no redness,warmth, tenderness
thinks that it is mostly her knee that is swollen
nothing taken for pain
didn't sleep welll due to pain
no cp, sob, color change, numbness/tingling/weakness
used cane to walk today
Past History
<Anastasia Rowley PA-C - Last Filed: 11/28/24 14:19>
Past History
ED Past Medical History: CAD and HTN
ED Past Surgical History: Cardiac
Social History
Tobacco: Non-smoker
Alcohol: None
Drug: None
Personal:
Living: with family
Review of Systems
<Anastasia Rowley PA-C - Last Filed: 11/28/24 14:19>
Review of Systems
Allergies reviewed?: Yes
All Other Systems: Not applicable
Phy Exam
<Anastasia Rowley PA-C - Last Filed: 11/28/24 14:19>
Physical Exam
Physical Exam:
GENERAL: Alert , in no apparent distress
EYE: pupils equal and reactive
NECK: Supple
ENT: o/p clr, mmm.
CARDIAC: Regular rate and rhythm .
LUNGS: Clear breath sounds bilaterally, no acute respiratory distress, no wheezes/rales/rhonchi
ABDOMEN: Soft, without focal tenderness, no r/g, no cvat, normal bowel sounds
NEUROLOGICAL: Alert and oriented, no focal neuro deficits
SKIN: Warm and dry, skin intact.
MUSCULOSKELETAL: righ tleg does not appear larger than left except i nthe knee;
Mild to mod right knee swelling (suprapatellar effusion) with arthritic chnages; able to flex 45 degrees; no swelling or defect in the gastrognemius; achilles asnon test normal; no obbvious thigh swelling/tenderness/well perfused. neg rodolfo's
sign
distal pulses normal
no ankle tenderness; full ROm
hip nontnder
PSYCH: Normal and appropriate interaction.
Course
<Anastasia Rowley PA-C - Last Filed: 11/28/24 14:19>
Orders/Labs/Results
Orders:
Orders
11/27/24 11:19
Knee, Right 4 or More Views [CR Knee- Right 4 Or More View*] Urgent
Comment:
Reason For Exam: right nkee pain/swelling
Venous Doppler Lwr Ext Rt [US Periph Venous LOWER Ext RT] Urgent
Comment: as well as r/o dvt
Reason For Exam: R leg pain/swelling; PLEASE LOOK FOR BAKERS CYST
Vital Signs
Initial and Last Documented VS:
Initial Vital Signs
Temp Pulse Resp BP Pulse Ox
36.3 C 67 18 207/102 100
11/27/24 10:13 11/27/24 10:13 11/27/24 10:13 11/27/24 10:13 11/27/24 10:13
Last Documented Vital Signs
Temp Pulse Resp BP Pulse Ox
36.3 C 67 18 182/101 100
11/27/24 10:13 11/27/24 10:13 11/27/24 10:13 11/27/24 12:46 11/27/24 10:13
<Deanne Rene MD - Last Filed: 11/27/24 13:20>
Orders/Labs/Results
Orders:
Orders
11/27/24 11:19
Knee, Right 4 or More Views [CR Knee- Right 4 Or More View*] Urgent
Comment:
Reason For Exam: right nkee pain/swelling
Venous Doppler Lwr Ext Rt [US Periph Venous LOWER Ext RT] Urgent
Comment: as well as r/o dvt
Reason For Exam: R leg pain/swelling; PLEASE LOOK FOR BAKERS CYST
Vital Signs
Initial and Last Documented VS:
Initial Vital Signs
Temp Pulse Resp BP Pulse Ox
36.3 C 67 18 207/102 100
11/27/24 10:13 11/27/24 10:13 11/27/24 10:13 11/27/24 10:13 11/27/24 10:13
Last Documented Vital Signs
Temp Pulse Resp BP Pulse Ox
36.3 C 67 18 182/101 100
11/27/24 10:13 11/27/24 10:13 11/27/24 10:13 11/27/24 12:46 11/27/24 10:13
<Anastasia Rowley PA-C - Last Filed: 11/28/24 14:19>
MDM/Problems Addressed
Differential Diagnosis Includes:
knee sprain, effusion, osteo arthritis, gastrogcnemius tear, achilles injury
ED Attending Note
<Anastasia Rowley PA-C - Last Filed: 11/28/24 14:19>
-
Portions of this chart may have been created with voice recognition software.� Occasional wrong word or��sound alike� substitutions may have occurred due to the inherent limitations of voice recognition software.
<Deanne Rene MD - Last Filed: 11/27/24 13:20>
ED Attending Note
Patient seen and examined by attending physician: Yes
I performed the substantive portion of visit, reviewed & personally made and approve the management plan that is documented in note by myself or MARGO.: Yes
ED Attending Note:
I have seen and evaluated the patient with a [id number] encounter. I have spoken to the [PA] and involved in the medical history, the physical exam, medical decision making.
Evaluation and management service: agree unless noted differently below.
Results interpretation: agree unless noted differently below.
74-year-old woman presenting to the emergency department with knee pain. Patient states that she was walking yesterday when she felt a pop of her calf and then had difficulty walking. She does state that the pain is worse with weightbearing. She
does note some swelling in her knee and some tightness in her thigh and calf. No numbness tingling. No redness. No fevers or chills.
On my evaluation patient is resting comfortably. She does have mild swelling of her right knee. No associated skin changes. She does have full range of motion. No tenderness palpation. 2+ DP pulses, neurovascularly intact. No obvious joint
laxity
X-ray and ultrasound were obtained. X-ray: Interpretation with joint effusion. Per the official read there is tricompartmental changes. Certainly could be secondary to arthritis or internal ligamentous injury. Patient advised to follow-up with
orthopedic surgery for outpatient MRI. Patient was offered knee immobilizer/Carmelo wrap. Patient did opt for knee immobilizer and weightbearing as tolerated. Patient advised on resting icing compression and elevation.
Discharge Plan
Departure
Patient Disposition: Home (Routine Discharge)
Date of Disposition: 11/27/24
Time of Disposition: 13:37
Discharge Problem:
Arthritis of knee, Leg pain
Instructions: Overuse Injuries (DC), BLOOD PRESSURE
Prescriptions:
No Action
amlodipine 2.5 mg Tablet
2.5 mg PO HS
losartan 100 mg Tablet
100 mg PO DAILY
ergocalciferol (vitamin D2) 1,000 unit Capsule
2,000 unit PO DAILY
PreserVision AREDS-2 250-90-40-1 mg Capsule
1 tab PO BID
aspirin [Children's Aspirin] 81 mg Tablet,Chewable
81 mg PO DAILY Qty: 30 0RF
metoprolol succinate 25 mg Tablet Extended Release 24 Hr
12.5 mg PO DAILY Qty: 30 11RF
clopidogrel [Plavix] 75 mg tablet
75 mg PO DAILY Qty: 90 3RF
rosuvastatin [Crestor] 20 mg tablet
20 mg PO DAILY Qty: 90 3RF
Referrals:
Andrea Shukla MD [Active] - Follow up in 5-7 days (ORTHOPEDICS)
Vahe Corrales MD [Active] - Follow up in 1 week
Activity Restrictions/Additional Instructions:
YOUR ULTRASOUND WAS NEGATIVE FOR ANY VENOUS BLOOD CLOT
YOUR XRAY SHOWS MILD TRICOMPARTMENTAL ARTHRITIS
YOU SHOULD CALL ORTHOPEDICS FOR AN APPOINTMENT
IN THE [place], TAKE ALEVE TWICE A DAY WITH FOOD FOE 3-5 DAYS AND MAKE SURE TO AVOID STRENUOUS EXERCISE
USE THE CARMELO WRAP DURING THE DAY, TAKE IT OFF AT NIGHT
ICE OFF AND ON
WATCH FOR WORSENING PAIN/SWELLING/REDNESS, NUMBNESS/TINGLING/WEAKNESS OR ANY CONCERNS AND RETURN IF NEEDED
YOUR BLOOD PRESSURE IS ELEVATED
MAKE SURE TO RECHECK AT HOME
Interventions
Interventions:
*Risk Screen - Suicide Last Done: 11/27/24 10:13
*General Assessment Last Done: 11/27/24 10:13
*Neglect/Abuse Screening Last Done: 11/27/24 10:13
*ED- Fall Risk Assessment Last Done: 11/27/24 14:05
*ED COVID-19 Vaccine History Last Done: 11/27/24 10:13
*Nursing Disposition Last Done: 11/27/24 14:05
ED-Musculoskeletal Assessment Last Done: 11/27/24 12:42
Discharge Date and Time
Discharge Date/Time: 11/27/24 14:05
Print Language: PALEST[place]IAN
[2024-11-27 12:46] VITALS: BP 182/101
== END 2024-11-27 14:05 | disposition home or self-care (01) ==
LOC: EMR 10:12
PROVIDERS: EMERGENCY PHYSICIAN Student in an Organized Health Care Education/Training Program
DX: M17.11 Unilateral primary osteoarthritis, right knee (principal); M79.604 Pain in right leg; I10 Essential (primary) hypertension; I25.2 Old myocardial infarction; I25.10 Atherosclerotic heart disease of native coronary artery without angina pectoris; I73.9 Peripheral vascular disease, unspecified
CPT/HCPCS: 99284; 29505; 73564; 93971

== ENCOUNTER → 2024-12-02 09:39 | Outpatient (REF) | payer MEDICARE, BC, SELFPAY | LOC: PAVMRI 09:39 | PROVIDERS: ATTENDING PHYSICIAN Physician Assistant | DX: M25.561 Pain in right knee (principal) | CPT/HCPCS: 73721 ==

== ENCOUNTER 2025-03-02 09:28 | Outpatient (RCR) | payer MEDICARE, BC, SELFPAY | END 2025-03-02 23:59 | disposition home or self-care (01) | LOC: RPT 09:28 | PROVIDERS: ATTENDING PHYSICIAN Orthopaedic Surgery | DX: Z47.89 Encounter for other orthopedic aftercare (principal); S83.241D Other tear of medial meniscus, current injury, right knee, subsequent encounter (principal); R26.9 Unspecified abnormalities of gait and mobility; Z73.6 Limitation of activities due to disability; R26.89 Other abnormalities of gait and mobility; R26.2 Difficulty in walking, not elsewhere classified; M62.81 Muscle weakness (generalized) | CPT/HCPCS: 97010; 97110; 97116; 97140; 97162 ==

== ENCOUNTER → 2025-03-16 10:12 | Outpatient (REF) | payer MEDICARE, BC, SELFPAY ==
[2025-03-16 12:13] LABS: HDL Cholesterol 66 mg/dl; LDL Cholesterol, Calculated 42 mg/dl; Very Low Density Lipoprotein 14 mg/dl (0-30)
== END ==
LOC: REG 10:12
PROVIDERS: ATTENDING PHYSICIAN Internal Medicine
DX: Z86.79 Personal history of other diseases of the circulatory system (principal); I10 Essential (primary) hypertension; E78.2 Mixed hyperlipidemia
CPT/HCPCS: 36415; 80061

== ENCOUNTER 2025-03-31 11:43 | Outpatient (RCR) | payer MEDICARE, BC, SELFPAY | END 2025-03-31 23:59 | disposition home or self-care (01) | LOC: RPT 11:43 | PROVIDERS: ATTENDING PHYSICIAN Orthopaedic Surgery | DX: Z47.89 Encounter for other orthopedic aftercare (principal); S83.241D Other tear of medial meniscus, current injury, right knee, subsequent encounter (principal); R26.9 Unspecified abnormalities of gait and mobility; Z73.6 Limitation of activities due to disability; R26.2 Difficulty in walking, not elsewhere classified; M62.81 Muscle weakness (generalized) | CPT/HCPCS: 97010; 97110; 97112; 97116; 97140; 97530 ==

== ENCOUNTER 2025-04-30 08:57 | Outpatient (RCR) | payer MEDICARE, BC, SELFPAY | END 2025-04-30 23:59 | disposition home or self-care (01) | LOC: RPT 08:57 | PROVIDERS: ATTENDING PHYSICIAN Orthopaedic Surgery | DX: Z47.89 Encounter for other orthopedic aftercare (principal); S83.241D Other tear of medial meniscus, current injury, right knee, subsequent encounter; R26.89 Other abnormalities of gait and mobility; Z73.6 Limitation of activities due to disability; R26.2 Difficulty in walking, not elsewhere classified | CPT/HCPCS: 97010; 97110; 97112; 97140; 97530 ==

== ENCOUNTER 2025-05-21 06:07 | Outpatient (RCR) | payer MEDICARE, BC, SELFPAY | END 2025-05-21 23:59 | disposition home or self-care (01) | LOC: RPT 06:07 | PROVIDERS: ATTENDING PHYSICIAN Orthopaedic Surgery | DX: Z47.89 Encounter for other orthopedic aftercare (principal); S83.241D Other tear of medial meniscus, current injury, right knee, subsequent encounter; R26.89 Other abnormalities of gait and mobility; Z73.6 Limitation of activities due to disability; R26.2 Difficulty in walking, not elsewhere classified | CPT/HCPCS: 97010; 97110; 97530 ==

== ENCOUNTER 2025-05-29 07:18 | Outpatient (RCR) | payer MEDICARE, BC, SELFPAY | END 2025-05-29 23:59 | disposition home or self-care (01) | LOC: RPT 07:18 | PROVIDERS: ATTENDING PHYSICIAN Internal Medicine Nephrology | DX: R42 Dizziness and giddiness (principal); Z73.6 Limitation of activities due to disability; Z98.890 Other specified postprocedural states; Z87.820 Personal history of traumatic brain injury | CPT/HCPCS: 97112; 97163 ==

== ENCOUNTER 2025-07-01 07:25 | Outpatient (RCR) | payer MEDICARE, BC, SELFPAY | END 2025-07-01 23:59 | disposition home or self-care (01) | LOC: RPT 07:25 | PROVIDERS: ATTENDING PHYSICIAN Internal Medicine Nephrology | DX: R42 Dizziness and giddiness (principal); Z73.6 Limitation of activities due to disability; Z98.890 Other specified postprocedural states; Z87.820 Personal history of traumatic brain injury | CPT/HCPCS: 97112 ==